=== PATIENT | male | born 1980 | race Caucasian/White ===

== ENCOUNTER 2018-06-11 14:57 | Emergency (ER) | payer SELFPAY ==
[~2018-06-11] VITALS: Ht 175.3 cm; Wt 69.3 kg
[2018-06-11 15:12] VITALS: BP 128/83
[2018-06-11] MEDS ORDERED: DIPH,PERTUSS(ACELL),TET VAC/PF 0.5 ML IM-VACC ONE ×2 (15:30→16:06)
[2018-06-11] MEDS ORDERED: LIDOCAINE-MPF 1%, 5ML INFIL ONE (15:30)
[2018-06-11] MEDS ORDERED: LIDOCAINE-MPF 1%, 5ML ONE (16:06)
[2018-06-11] MEDS ORDERED: BACITRACIN ZINC OINT 500U/GM, 0.9 GM ONE (16:38)
== END 2018-06-11 16:49 | disposition home or self-care (01) ==
LOC: ED 16:40
DX: S61.215A Laceration without foreign body of left ring finger without damage to nail, initial encounter (principal); F17.200 Nicotine dependence, unspecified, uncomplicated; X58.XXXA Exposure to other specified factors, initial encounter; Y93.89 Activity, other specified; Y92.59 Other trade areas as the place of occurrence of the external cause; Y99.8 Other external cause status
CPT/HCPCS: 12001; 90471; 90715

== ENCOUNTER 2018-07-12 14:03 | Emergency (ER) | payer SELFPAY ==
[~2018-07-12] VITALS: Ht 175.3 cm; Wt 69.0 kg
[2018-07-12 14:22] VITALS: BP 133/84
[2018-07-12 14:59] LABS: BASOPHILS # (AUTO) 0.05 x10^3/uL (0-0.1); BASOPHILS % (AUTO) 1 % (0-1); EOSINOPHILS # (AUTO) 0.06 x10^3/uL (0-0.4); EOSINOPHILS % (AUTO) 1 % (1-7); LYMPHOCYTES # (AUTO) 1.76 x10^3/uL (1-3.4); LYMPHOCYTES % (AUTO) 21 % (22-44); MD NO; MEAN CORPUSCULAR HEMOGLOBIN 33.9 pg (27.5-34.5); MEAN CORPUSCULAR HGB CONC 35.2 g/dL (33.2-36.2); MEAN CORPUSCULAR VOLUME 96.3 fL (81-97); MEAN PLATELET VOLUME 7.8 fL (7.4-10.4); MONOCYTES # (AUTO) 0.63 x10^3/uL (0.2-0.8); MONOCYTES % (AUTO) 8 % (2-9); NEUTROPHILS # (AUTO) 5.96 x10^3/uL (1.8-6.8); NEUTROPHILS % (AUTO) 70 % (42-75); PLATELET COUNT 302 x10^3/uL (130-400); RED BLOOD COUNT 5.02 x10^6/uL (4.38-5.82); RED CELL DISTRIBUTION WIDTH 12.7 % (9.4-14.8)
[2018-07-12 15:06] LABS: ALBUMIN 4.1 g/dL (3.4-5.0); ANION GAP 3 mmol/L (5-15); CALCIUM 9.1 mg/dL (8.5-10.1); CHLORIDE 103 mmol/L (98-107); CREATININE 0.86 mg/dL (0.7-1.3)
--- NOTE | 2018-07-12 15:52 | NUR ---
Pt to room from lobby.
--- NOTE | 2018-07-12 16:28 | NUR ---
Pt presents for hematuria and flank pain x 2 days, worse today. Pt also states unprotected intercourse several days ago. NAD at this time.
[2018-07-12 16:30] LABS: CULTURE INDICATED? YES; MICROSCOPIC INDICATED
[2018-07-12] MEDS ORDERED: AZITHROMYCIN 500 MG TABLET ONE ×2 (16:51→17:00)
[2018-07-12] MEDS ORDERED: CEFTRIAXONE 250 MG ONE (16:52)
[2018-07-12] MEDS ORDERED: LIDOCAINE-MPF 1%, 2ML ONE (16:53)
[2018-07-12] MEDS ORDERED: CEFTRIAXONE 250 MG IM ONE (17:00)
[2018-07-12] MEDS ORDERED: AZITHROMYCIN 250 MG TABLET PO ONE (17:00)
== END 2018-07-12 17:13 | disposition home or self-care (01) ==
LOC: ED 16:01
DX: R10.84 Generalized abdominal pain (principal); J20.9 Acute bronchitis, unspecified
CPT/HCPCS: 36415; 71046; 80048; 81001; 82040; 85025; 87086; 87491; 87591; 96372; 99284; J0696